=== PATIENT | female | born 2000 | race Caucasian/White ===

== ENCOUNTER 2019-12-22 11:15 | Emergency (ER) | payer OTHER, SELFPAY ==
[2019-12-22 11:54] VITALS: BP 121/63; PULSE 64; RESP 16; TEMP 37.3; O2SAT 98
--- NOTE | 2019-12-22 12:24 | ED.GENADULT ---
HPI - General Adult General Chief complaint: Nausea/Vomiting/Diarrhea Stated complaint: Vomiting/abd pain Time Seen by Provider: 12/22/19 12:24 Source: patient Mode of arrival: ambulatory Limitations: no limitations History of Present Illness HPI narrative: 19-year-old female patient presents to the [facility] with complaints of nausea vomiting diarrhea. Patient states that she had these symptoms yesterday from 4010 and at which time she did have some abdominal pain but denies any fevers at that time. Patient states that her symptoms have since resolved and denies any symptoms today. Patient denies any abdominal pain, denies any pain with urination. Denies any back pain. Denies any nausea vomiting or diarrhea today. Denies any chest pain or shortness of breath. Related Data Home Medications Medication Instructions Recorded Confirmed No Home Medications 12/22/19 12/22/19 Allergies Allergy/AdvReac Type Severity Reaction Status Date / Time No Known Allergies Allergy Verified 12/22/19 12:28 Review of Systems Review of Systems: Narrative: CONSTITUTIONAL: Denies fever, chills, or sweats. EYES: Denies visual changes, redness, or discharge. ENT: Denies rhinorrhea, congestion, sore throat, or otalgia. CARDIOVASCULAR: Denies chest pain, palpitations, or edema. RESPIRATORY: Denies cough or dyspnea. GASTROINTESTINAL: Positive abdominal pain, nausea, vomiting, and diarrhea that has since resolved. GENITOURINARY: Denies dysuria or hematuria. SKIN: Denies rash or itching. MUSCULOSKELETAL: Denies back pain, joint pain, or myalgia. NEUROLOGIC: Denies headache, numbness, or weakness. PSYCHIATRIC: Denies anxiety or depression. Exam Narrative: Exam Narrative: GENERAL: Well-appearing, well-nourished, and in no acute distress. HEAD: Normocephalic, atraumatic. EYES: PERRLA and EOMI. ENT: Nares clear, no rhinorrhea or epistaxis. Mucous membranes moist. NECK: Supple. No lymphadenopathy CHEST: Clear to auscultation. No respiratory distress. HEART: Regular rate and rhythm. No murmur heard. Normal peripheral pulses. ABDOMEN: Soft, flat, nondistended. No guarding, rebound tenderness, or rigid. No pulsatilla masses. Bowel sounds present in all four quadrants. No organomegaly. Negative Albright?s sign. No periumbicial tenderness. No Supra public tenderness or distension. Good femoral pulses bilaterally. No hernia noted. No scars or surface trauma. EXTREMITIES: Normal range of motion. No edema. SKIN: Warm, dry, no rash. NEURO: No focal deficits. Alert and oriented x3. Course Vital Signs Vital signs: Vital Signs Temperature 37.3 C 12/22/19 11:54 Pulse Rate 64 12/22/19 11:54 Respiratory Rate 16 12/22/19 11:54 Blood Pressure 121/63 12/22/19 11:54 Pulse Oximetry 98 12/22/19 11:54 Temperature 37.3 C 12/22/19 11:54 Pulse Rate 64 12/22/19 11:54 Respiratory Rate 16 12/22/19 11:54 Blood Pressure 121/63 12/22/19 11:54 Pulse Oximetry 98 12/22/19 11:54 Vital signs reviewed Medical Decision Making Differential Diagnosis Differential Diagnosis: Differential diagnosis: Appendicitis, ovarian torsion, gallbladder disease, ovarian torsion, pancreatitis, lower lobe pneumonia,AAA, AMI or ACS, DKA, diverticulitis. Discussed with patient that her urine dip looks okay and her test was negative today however she continues to have worsening symptoms of abdominal pain, nausea, vomiting or diarrhea I would recommend that she go to the ER for further evaluation and treatment. Patient verbalized understanding denies any other questions or concerns at this time. Vital Signs Vital Signs: Vital Signs Temperature 37.3 C 12/22/19 11:54 Pulse Rate 64 12/22/19 11:54 Respiratory Rate 16 12/22/19 11:54 Blood Pressure 121/63 12/22/19 11:54 Pulse Oximetry 98 12/22/19 11:54 Temperature 37.3 C 12/22/19 11:54 Pulse Rate 64 12/22/19 11:54 Respiratory Rate 16 12/22/19 11:54 Blood Pressure 121/63
--- NOTE | 2019-12-22 14:49 | PCDIET ---
NO UC ORDERED PER VINNY
== END 2019-12-22 12:44 | disposition home or self-care (01) ==
PROVIDERS: Emergency Provider Nurse Practitioner Family
DX: B34.9 Viral infection, unspecified (principal); K52.9 Noninfective gastroenteritis and colitis, unspecified
CPT/HCPCS: 81003; 81025; 99213; G0463

== ENCOUNTER 2021-05-09 11:54 | Emergency (ER) | payer OTHER, SELFPAY ==
[2021-05-09 12:01] VITALS: BP 117/71; PULSE 71; RESP 16; TEMP 36.9; O2SAT 99
--- NOTE | 2021-05-09 12:13 | ED.GENADULT ---
HPI - General Adult General Chief complaint: Upper Respiratory Infection Stated complaint: Coughing, sore throat, nose drainage Time Seen by Provider: 05/09/21 12:12 Source: patient and RN notes reviewed Mode of arrival: ambulatory Limitations: no limitations History of Present Illness HPI narrative: 20-year-old female presents with complaints of cough and upper respiratory infection symptoms for 7 days. ?Denisha reports increasing symptoms throughout the night with sore throat. ?No treatment. ?Cough without chest congestion. ?Rhinorrhea and nasal congestion. ?Sore throat bilateral, pain with swallowing. ?No high fevers, drooling, neck or throat swelling. ?No chest pain, wheezing, or shortness of breath. Denies nausea, vomiting, and abdominal pain. ?Tolerating liquids well. ?LMP 04/18/2021. ?Remains active. ?The patient reports she has not been diagnosed with COVID-19. The patient reports she is not waiting for the results of a COVID-19 lab test. ?The patient reports she does not have chills, weakness, fatigue, or myalgia. ?The patient reports he does not have a worsening cough. ?The patient reports he does not have any loss of taste or smell and diarrhea. ?Denies recent traveling. ?Denies concerns for COVID-19 or exposures. ?At this time, the patient is not suspected of having COVID-19. Some parts of this dictation were generated by voice recognition software and may contain typographical and/or grammatical inaccuracies. Related Data Allergies Allergy/AdvReac Type Severity Reaction Status Date / Time No Known Allergies Allergy Verified 05/09/21 12:23 Review of Systems Review of Systems: Narrative: CONSTITUTIONAL: Denies fever, sweats, chills, fatigue. EYES: Denies visual changes, redness, discharge. ENT: Complains of congestion, rhinorrhea, sore throat. Denies otalgia. CARDIOVASCULAR: Denies chest pain, palpitations, edema. RESPIRATORY: Denies dyspnea, wheezing. Complaints of cough. GASTROINTESTINAL: Denies abdominal pain, nausea, vomiting, diarrhea. GENITOURINARY: Denies dysuria, hematuria, abnormal discharge. SKIN: Denies rash or itching. MUSCULOSKELETAL: Denies acute back pain, joint pain, or myalgia. NEUROLOGIC: Denies numbness or focal weakness. PSYCHIATRIC: Denies anxiety or depression. All other systems reviewed are negative, except as documented in HPI and below. PMFSH Past Medical History Medical History Anxiety Depression Surgical History Surgical History No significant past surgical history Family History Family History (Updated 05/15/21 @ 23:18 by VERONICA Stevens) Father Asthma Lung cancer Cancer of kidney Mother Smoker Social History Social History (Updated 05/15/21 @ 23:19 by VERONICA Stevens) Smoking packs per day: 0.5 Smoking cigarettes per day: 10.0 Years smoked: 2 Smoking pack-years: 1.00 Smoking status: Current every day smoker Tobacco type: cigarettes Second hand tobacco smoke exposure: Yes Alcohol intake: current Substance use: current Substance use type: marijuana Living arrangements: with family Occupation/Education: occupation Gender identity (if verbalized by the patient): Female Sexual Orientation (if Verbalized by the Patient): Straight or Heterosexual Comments At time of signature, agree with nurse past medical, surgical, social, and family history. There is no relevant family history pertinent to the presenting complaint. Exam Narrative: Exam Narrative: GENERAL: This is a well-nourished, well-developed patient, in no apparent distress. Talks in full sentences and ambulates with steady gait without dyspnea. HEAD: Normocephalic, atraumatic. EYES: PERRL. Sclera clear/white. Vision is grossly intact. EARS: External ears normal, auditory canals clear and without drainage, TMs normal without perforation. Hearing grossly
== END 2021-05-09 13:10 | disposition home or self-care (01) ==
PROVIDERS: Emergency Provider Nurse Practitioner Family
DX: J06.9 Acute upper respiratory infection, unspecified (principal)
CPT/HCPCS: 99213; G0463

== ENCOUNTER 2022-10-06 08:42 | Emergency (ER) | payer OTHER, SELFPAY ==
--- NOTE | ~2022-10-06 | XR_ITS ---
EXAMINATION: XR chest 2V DATE: 10/06/2022 10:10 INDICATION: Cough TECHNIQUE: PA and lateral views of the chest are obtained. COMPARISON: None available FINDINGS: There are airspace opacities of the left lower lobe. No pleural effusion or pneumothorax. T he cardiomediastinal silhouette is normal. The visualized bones are unremarkable. IMPRESSION: 1. Left lower lobe airspace opacities, consistent with pneumonia. Reviewed, dictated and finalized at location A. [employer]
[2022-10-06 09:16] VITALS: BP 125/69; PULSE 95; RESP 18; TEMP 37.4; O2SAT 99
--- NOTE | 2022-10-06 09:57 | ED.GENADULT ---
HPI - General Adult General Chief complaint: Upper Respiratory Infection Stated complaint: runny nose,cough Source: patient Mode of arrival: ambulatory Limitations: no limitations History of Present Illness HPI narrative: Patient presents for evaluation of cough for the last week. She states cough is productive of green sputum. She denies any fever, chills, sore throat, otalgia, shortness of breath, nausea, vomiting, diarrhea, body aches. She experiences left lower quadrant abdominal pain only when she coughs. No history of ovarian cysts. No recent sick contacts to her knowledge. Her father has COVID but she states she has not been around him as of late. She is a former smoker. She does still smoke marijuana. She has had COVID in the past. She has had COVID vaccination but does not believe she received a flu shot. Related Data Allergies Allergy/AdvReac Type Severity Reaction Status Date / Time No Known Allergies Allergy Verified 10/06/22 09:27 Review of Systems Review of Systems: CONSTITUTIONAL: Denies fever, chills, or sweats. EYES: Denies visual changes, redness, or discharge. ENT: Denies rhinorrhea, congestion, sore throat, or otalgia. CARDIOVASCULAR: Denies chest pain, palpitations, or edema. RESPIRATORY: Reports productive cough of green sputum. Denies dyspnea. GASTROINTESTINAL: Reports LLQ pain only when coughing. Denies abdominal pain otherwise. Denies nausea, vomiting, or diarrhea. GENITOURINARY: Denies dysuria or hematuria. SKIN: Denies rash or itching. MUSCULOSKELETAL: Denies back pain, joint pain, or myalgia. NEUROLOGIC: Denies headache, numbness, dizziness, or weakness. PSYCHIATRIC: Denies anxiety or depression. [facility] Past Medical History Medical History Anxiety Depression Surgical History Surgical History No significant past surgical history Family History Family History Father Asthma Lung cancer Cancer of kidney Mother Smoker Social History Social History Smoking packs per day: 0.5 Smoking cigarettes per day: 10.0 Years smoked: 2 Smoking pack-years: 1.00 Smoking status: Former smoker Tobacco type: cigarettes Second hand tobacco smoke exposure: Yes Alcohol intake: current Substance use: current Substance use type: marijuana Gender identity (if verbalized by the patient): Female Sexual Orientation (if Verbalized by the Patient): Straight or Heterosexual Spiritual care concerns: No Exam Narrative: GENERAL: Well-appearing, well-nourished, and in no acute distress. HEAD: Normocephalic, atraumatic. EYES: PERRLA and EOMI. ENT: Nares clear, no rhinorrhea or epistaxis. Mucous membranes moist. Oropharynx without tonsillar hypertrophy exudate or other lesions. Bilateral TMs pearly reno nonbulging NECK: Supple. No adenopathy or masses. No carotid bruits or JVD CHEST: Clear to auscultation. No respiratory distress. No wheezes rales or rhonchi HEART: Regular rate and rhythm. No murmur heard. Normal peripheral pulses. ABDOMEN: Soft, nontender, nondistended, normal active bowel sounds. EXTREMITIES: Normal range of motion. No edema. SKIN: Warm, dry, no rash. NEURO: No focal deficits. Alert and oriented x3. PSYCH: Normal mood and affect. Course Course Emergency Course: This is a 22-year-old female who presented for one-week history of cough. Influenza and COVID were negative. Chest x-ray with evidence of community-acquired pneumonia. Will treat with Augmentin and azithromycin. Follow-up with primary. Mucinex DM for cough. Increase hydration. Go to the ER for difficulty breathing. Patient in agreement with plan of care. Level of Care: Express Care Visit Vital Signs Vital signs: Vital Signs Temperature 37.4 C 09/19
== END 2022-10-06 11:00 | disposition home or self-care (01) ==
PROVIDERS: Emergency Provider Nurse Practitioner
DX: J18.9 Pneumonia, unspecified organism (principal); Z20.822 Contact with and (suspected) exposure to COVID-19; Z87.891 Personal history of nicotine dependence; F12.90 Cannabis use, unspecified, uncomplicated
CPT/HCPCS: 71046; 87426; 87804; 99213; C9803; G0463